=== PATIENT | female | born 1985 | race Caucasian/White ===

== ENCOUNTER 2016-08-08 08:45 | Emergency (ER) | payer MEDICAID ==
[~2016-08-08] VITALS: Ht 167.6 cm; Wt 96.6 kg
[2016-08-09] MEDS ORDERED: EPIPEN0.3 MG/0.3 IM (04:26)
[2016-08-09] MEDS ORDERED: CLARITIN10 MG PO (04:26)
== END 2016-08-08 13:15 | disposition short-term general hospital (02) ==
LOC: ER 08:45
DX: L50.0 Allergic urticaria (principal); F17.210 Nicotine dependence, cigarettes, uncomplicated; Z90.49 Acquired absence of other specified parts of digestive tract; Z98.890 Other specified postprocedural states; Z88.8 Allergy status to other drugs, medicaments and biological substances
CPT/HCPCS: J0171; J2060; J2930

== ENCOUNTER 2016-08-09 03:31 | Emergency (ER) | payer MEDICAID ==
[~2016-08-09] VITALS: Ht 167.6 cm; Wt 96.6 kg
[2016-08-09] MEDS ORDERED: CLARITIN10 MG PO (04:26)
[2016-08-09] MEDS ORDERED: EPIPEN0.3 MG/0.3 IM (04:26)
== END 2016-08-09 08:35 | disposition short-term general hospital (02) ==
LOC: ER 03:31
DX: L50.0 Allergic urticaria (principal); F17.210 Nicotine dependence, cigarettes, uncomplicated; Z90.49 Acquired absence of other specified parts of digestive tract; Z88.8 Allergy status to other drugs, medicaments and biological substances
CPT/HCPCS: J1885; J2060; J2930

== ENCOUNTER 2016-08-10 05:53 | Emergency (ER) | payer MEDICAID ==
[~2016-08-10] VITALS: Ht 165.1 cm; Wt 104.3 kg
[~2016-08-10 05:53] MED LIST: CLARITIN10 MG PO; EPIPEN0.3 MG/0.3 IM
== END 2016-08-10 10:28 | disposition short-term general hospital (02) ==
LOC: ER 05:53
DX: T78.3XXA Angioneurotic edema, initial encounter (principal); K21.9 Gastro-esophageal reflux disease without esophagitis; Z79.899 Other long term (current) drug therapy; Z88.8 Allergy status to other drugs, medicaments and biological substances; Z90.49 Acquired absence of other specified parts of digestive tract; Y99.8 Other external cause status
CPT/HCPCS: J2060; J2930; J8499

== ENCOUNTER 2016-08-11 08:34 | Emergency (ER) | payer MEDICAID ==
[~2016-08-11] VITALS: Ht 165.1 cm; Wt 104.3 kg
== END 2016-08-11 10:27 | disposition short-term general hospital (02) ==
LOC: ER 08:34
DX: L50.9 Urticaria, unspecified (principal); F41.9 Anxiety disorder, unspecified; R51 Headache
CPT/HCPCS: J2930; J8499